=== PATIENT | female | born 1990 | race Two or more races ===

== ENCOUNTER 2024-10-17 13:45 | Emergency (ER) | payer SELFPAY ==
[~2024-10-17] VITALS: Ht 172.7 cm; Wt 63.5 kg
[2024-10-17 14:34] LABS: APPEARANCE,URINE CLEAR (CLEAR); BILIRUBIN,URINE Negative (NEGATIVE); BLOOD, URINE Negative Ery/uL (NEGATIVE); COLOR,URINE YELLOW (YELLOW); KETONES,URINE Negative (NEGATIVE); LEUKOCYTE ESTERASE ,URINE Negative (NEGATIVE); PH,URINE 8.5 (5.0-8.0); PROTEIN,URINE Negative (NEGATIVE); UGLUCOSE Negative (NEGATIVE)
[2024-10-17 14:35] LABS: PREGNANCY TEST URINE QUAL NEGATIVE (NEGATIVE)
[2024-10-17 14:36] LABS: NITRITE, URINE NEGATIVE (NEGATIVE)
[2024-10-17 14:36] LABS: BASOPHILS % (AUTO) 0.7 % (0.0-2.0); EOSINOPHILS # (AUTO) 0.1 K/uL (0.0-0.7); HEMATOCRIT 37 % (33-45); HEMOGLOBIN 12.4 g/dL (11.5-14.8); LYMPHOCYTES # (AUTO) 1.5 K/uL (0.8-4.8); LYMPHOCYTES % (AUTO) 39.3 % (20.0-44.0); MEAN CORPUSCULAR HEMOGLOBIN 28 PG (26.0-33.0); MEAN CORPUSCULAR HGB CONC 34 g/dl (31.0-36.0); MEAN CORPUSCULAR VOLUME 84 fL (82-100); MONOCYTES # (AUTO) 0.3 K/uL (0.1-1.30); MONOCYTES % (AUTO) 8.5 % (2.0-12.0); NEUTROPHILS # (AUTO) 1.9 K/uL (1.8-8.9); NEUTROPHILS % (AUTO) 49.5 % (43.0-81.0); PLATELET COUNT (AUTO) 276 K/uL (150-450); RED BLOOD CELL COUNT(AUTO) 4.38 MIL/uL (4.0-5.2); RED CELL DISTRIBUTION WIDTH 13.9 % (11.5-15.0); WHITE BLOOD COUNT (AUTO) 3.8 K/uL (4.3-11.0)
[2024-10-17 14:40] LABS: ADD URINE CULTURE YES; BACTERIA,URINE Rare /HPF (None Seen); SQUAMOUS EPITHELIAL CELL,UR Many /HPF (None Seen)
[2024-10-17] MEDS ORDERED: IBUPROFEN 600 MG TABLET ONE (14:40)
[2024-10-17] MEDS ORDERED: DICYCLOMINE HCL 10 MG CAPSULE PO ONE (14:40)
[2024-10-17] MEDS ORDERED: ONDANSETRON 4 MG TAB.RAPDIS ONE (14:40)
[2024-10-17] MEDS: IBUPROFEN 600 MG TABLET PO ONE (14:44)
[2024-10-17] MEDS: DICYCLOMINE HCL 10 MG CAPSULE PO ONE (14:44)
[2024-10-17] MEDS: ONDANSETRON HCL 4 MG/5 ML SOLUTION PO ONE (14:44)
[2024-10-17 14:45] LABS: CREATININE 0.8 mg/dL (0.6-1.3)
[2024-10-17 14:51] LABS: ALBUMIN 3.3 g/dL (3.4-5.0); BILIRUBIN,DIRECT 0.1 mg/dL (0.0-0.2); BILIRUBIN,TOTAL 0.4 mg/dL (0.2-1.0)
[2024-10-17] MEDS ORDERED: IBUP-1953 PO (16:59)
[2024-10-17] MEDS ORDERED: DICY10CA37 PO (16:59)
[2024-10-17] MEDS ORDERED: CLIN300C12 PO (16:59)
[2024-10-17] MEDS ORDERED: ONDA4TAB5 PO (16:59)
[2024-10-17 17:43] VITALS: BP 113/72; TEMP 98.5; O2SAT 99
== END 2024-10-17 17:05 | disposition home or self-care (01) ==
LOC: ER 13:49
DX: R10.31 Right lower quadrant pain (principal); L03.012 Cellulitis of left finger; Z79.899 Other long term (current) drug therapy
CPT/HCPCS: 99284; 76856; 85025; 80048; 83690; 80076; 84703; 81001; 36415; Q0162; 87086-TC